=== PATIENT | male | born 2000 | race Asian ===

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

== ENCOUNTER 2018-01-09 12:51 | Inpatient (IN) | payer MEDICAID, OTHER ==
[~2018-01-09] VITALS: Ht 177.8 cm; Wt 54.0 kg
[~2018-01-09 12:51] MED LIST changes: +DIVA-78 PO; +LITH300C3 PO
[2018-01-09] MEDS ORDERED: LORazepam 2 MG/ML VIAL IM ONE (16:30)
[2018-01-09] MEDS ORDERED: DiphenhydrAMINE HCL 50 MG/ML VIAL IM ONE (16:30)
[2018-01-09] MEDS ORDERED: HALOPERIDOL LACTATE 5 MG/ML VIAL IM ONE (16:30)
[2018-01-09 17:13] LABS: BASOPHILS % (AUTO) 0.7 % (0.0-2.0); EOSINOPHILS % (AUTO) 0.2 % (1.0-6.0); HEMATOCRIT 46.6 % (41-53); HEMOGLOBIN 16.1 g/dL (13.5-17.5); LYMPHOCYTES # (AUTO) 2.3 K/uL (1.0-4.8); LYMPHOCYTES % (AUTO) 20.9 % (22.0-44.0); MEAN CORPUSCULAR HEMOGLOBIN 30.5 pg (26.0-34.0); MEAN CORPUSCULAR HGB CONC 34.5 G/dL (31.0-37.0); MEAN CORPUSCULAR VOLUME 88 fL (80-100); MONOCYTES # (AUTO) 1.3 K/uL (0.1-1.0); MONOCYTES % (AUTO) 11.4 % (2.0-9.0); NEUTROPHILS # (AUTO) 7.4 K/uL (1.8-7.7); NEUTROPHILS % (AUTO) 66.8 % (40.0-70.0); PLATELET COUNT (AUTO) 241 K/uL (150-450); RED BLOOD CELL COUNT(AUTO) 5.27 MIL/uL (4.50-5.90); RED CELL DISTRIBUTION WIDTH 13.2 % (11.5-14.5)
[2018-01-09 17:14] LABS: AMPHET/METH SCREEN,URINE NEGATIVE (NEGATIVE); BARBITURATE SCREEN, URINE NEGATIVE (NEGATIVE); BENZODIAZEPINES SCREEN,URINE NEGATIVE (NEGATIVE); CANNABINOID SCREEN,URINE NEGATIVE (NEGATIVE); COCAINE SCREEN,URINE NEGATIVE (NEGATIVE); METHADONE SCREEN, URINE NEGATIVE (NEGATIVE); OPIATE SCREEN,URINE NEGATIVE (NEGATIVE); PHENCYCLIDINE SCREEN,URINE NEGATIVE (NEGATIVE)
[2018-01-09 17:28] LABS: ANION GAP 17 mmol/L (8-16); CARBON DIOXIDE 21 mmol/L (22-29); CHLORIDE 104 mmol/L (98-107); CREATININE 1.12 mg/dL (0.60-1.30); GLOMERULAR FILTR. RATE CALC > 60 mL/min (>60); GLUCOSE,RANDOM 101 mg/dL (70-110); POTASSIUM 3.9 mmol/L (3.5-5.1); SODIUM SERUM 142 mmol/L (136-145); UREA NITROGEN, BLOOD 14 mg/dL (7-18)
[2018-01-09 17:33] LABS: ALANINE AMINOTRANSFERASE 140 U/L (12-78); ALBUMIN 4.8 g/dL (3.4-5.0); ALKALINE PHOSPHATASE 86 U/L (46-116); ASPARTATE AMINOTRANSFERASE 41 U/L (15-37); TOTAL PROTEIN, SERUM 8.9 g/dL (6.4-8.2)
[2018-01-09] MEDS ORDERED: ZOLPIDEM TARTRATE 10 MG TABLET PO PRN (18:00)
[2018-01-09] MEDS ORDERED: LORazepam 2 MG TABLET PO PRN (18:00)
[2018-01-09] MEDS ORDERED: HALOPERIDOL 5 MG TABLET PO PRN (18:00)
[2018-01-09] MEDS: HALOPERIDOL 5 MG TABLET PO SCH (20:40)
[2018-01-10] MEDS: HALOPERIDOL 5 MG TABLET PO SCH (08:44)
[2018-01-10 09:25] LABS: CHOL/HDL RATIO 4.1 (4.2-7.3); FREE T4 (FREE THYROXINE) 0.92 ng/dL (0.76-1.46); THYROID STIMULATING HORMONE 0.8 uIU/mL (0.36-3.74)
[2018-01-10 20:03] VITALS: BP 108/56
[2018-01-10] MEDS ORDERED: DOCUSATE SODIUM 100 MG CAPSULE PO PRN ×2 (21:15)
[2018-01-10] MEDS ORDERED: ALBUTEROL SULFATE HFA 90 MCG/PUFF 8 GM INHALER IH PRN (21:15)
[2018-01-10] MEDS ORDERED: ONDANSETRON HCL 4 MG TABLET PO PRN ×2 (21:15)
[2018-01-10] MEDS ORDERED: MAG HYDROX/AL HYDROX/SIMETH ES 30 ML SUSPENSION UDCUP PO PRN ×2 (21:15)
[2018-01-10] MEDS ORDERED: MAGNESIUM HYDROXIDE SUSPENSION 30 ML UDCUP PO PRN ×2 (21:15)
[2018-01-10] MEDS ORDERED: LOPERAMIDE HCL 2 MG CAPSULE PO PRN ×2 (21:15)
[2018-01-10] MEDS ORDERED: IBUPROFEN 400 MG TABLET PO PRN (21:15)
[2018-01-10] MEDS ORDERED: ACETAMINOPHEN 325 MG TABLET PO PRN ×2 (21:15)
[2018-01-10] MEDS ORDERED: PETROLATUM,WHITE 71 GM JELLY TP PRN ×2 (21:15)
[2018-01-11] MEDS ORDERED: NICOTINE 14 MG/24 HOUR PATCH TD SCH (09:00)
[2018-01-11 09:12] VITALS: BP 102/51
[2018-01-11] MEDS: HALOPERIDOL 5 MG TABLET PO SCH ×2 (10:26→17:38)
[2018-01-11] MEDS: NICOTINE 14 MG/24 HOUR PATCH TD SCH (10:26)
[2018-01-11 21:34] VITALS: BP 106/60
[2018-01-12 10:15] VITALS: BP 102/53
[2018-01-12] MEDS: NICOTINE 14 MG/24 HOUR PATCH TD SCH (11:13)
[2018-01-12] MEDS: HALOPERIDOL 5 MG TABLET PO SCH (16:27)
[2018-01-12 19:18] VITALS: BP 106/67
[2018-01-13 08:05] VITALS: BP 103/69
[2018-01-13] MEDS: HALOPERIDOL 5 MG TABLET PO SCH ×2 (09:33→15:51)
[2018-01-13] MEDS: NICOTINE 14 MG/24 HOUR PATCH TD SCH (09:34)
[2018-01-13 15:51] VITALS: BP 111/77
[2018-01-13] MEDS: IBUPROFEN 400 MG TABLET PO PRN ×2 (15:51→16:21)
[2018-01-14 09:39] VITALS: BP 94/56
[2018-01-14] MEDS: HALOPERIDOL 5 MG TABLET PO SCH ×2 (10:26→16:17)
[2018-01-14] MEDS: NICOTINE 14 MG/24 HOUR PATCH TD SCH (10:27)
[2018-01-14 17:21] VITALS: BP 130/78
[2018-01-15] MEDS: NICOTINE 14 MG/24 HOUR PATCH TD SCH (09:14)
[2018-01-15] MEDS: HALOPERIDOL 5 MG TABLET PO SCH (09:14)
[2018-01-15 10:08] VITALS: BP 97/66
[2018-01-15] MEDS ORDERED: HALO5TAB2 PO (10:56)
== END 2018-01-15 14:35 | disposition home or self-care (01) | DRG 751 ==
LOC: EMS 12:52 → B3A 01-10 15:16 → UNDOADMIN 01-10 15:16 → 3EI 01-10 18:45
PROVIDERS: ADMIT Psychiatry & Neurology Psychiatry; ATTEND Psychiatry & Neurology Psychiatry
DX: F29 Unspecified psychosis not due to a substance or known physiological condition (principal); I95.9 Hypotension, unspecified; R45.851 Suicidal ideations; F20.9 Schizophrenia, unspecified; F15.90 Other stimulant use, unspecified, uncomplicated; F19.20 Other psychoactive substance dependence, uncomplicated; D72.829 Elevated white blood cell count, unspecified; E78.5 Hyperlipidemia, unspecified; F32.9 Major depressive disorder, single episode, unspecified; F41.9 Anxiety disorder, unspecified; R74.0 Nonspecific elevation of levels of transaminase and lactic acid dehydrogenase [LDH]; F17.200 Nicotine dependence, unspecified, uncomplicated; Z63.9 Problem related to primary support group, unspecified; Z91.19 Patient's noncompliance with other medical treatment and regimen; Z79.899 Other long term (current) drug therapy
CPT/HCPCS: 84439; 84443; 99285; G0480

== ENCOUNTER 2018-03-03 10:38 | Emergency (ER) | payer MEDICAID, OTHER ==
[~2018-03-03] VITALS: Ht 180.3 cm; Wt 56.8 kg
[~2018-03-03 10:38] MED LIST changes: -DIVA-78 PO; +HALO5TAB2 PO; -LITH300C3 PO; -SERT50TA12 PO
[2018-03-03 10:40] VITALS: BP 138/74
[2018-03-03] MEDS ORDERED: IBUPROFEN 600 MG TABLET PO ONE (13:15)
[2018-03-03] MEDS ORDERED: ACETAMINOPHEN 325 MG TABLET PO ONE (13:15)
== END 2018-03-03 13:25 | disposition home or self-care (01) ==
LOC: EMS 10:39
DX: J02.0 Streptococcal pharyngitis (principal); F32.9 Major depressive disorder, single episode, unspecified; F20.9 Schizophrenia, unspecified
CPT/HCPCS: 99283

== ENCOUNTER 2018-10-21 15:27 | Emergency (ER) | payer OTHER ==
[~2018-10-21] VITALS: Ht 167.6 cm; Wt 68.0 kg
[~2018-10-21 15:27] MED LIST changes: +CEPH500 PO; -HALO5TAB2 PO; +RISP1 PO
[2018-10-21 16:08] LABS: BASOPHILS % (AUTO) 0.4 % (0.0-2.0); EOSINOPHILS % (AUTO) 0.2 % (1.0-6.0); HEMATOCRIT 43.7 % (41-53); HEMOGLOBIN 14.8 g/dL (13.5-17.5); LYMPHOCYTES # (AUTO) 1.7 K/uL (1.0-4.8); LYMPHOCYTES % (AUTO) 15.2 % (22.0-44.0); MEAN CORPUSCULAR HEMOGLOBIN 30.1 pg (26.0-34.0); MEAN CORPUSCULAR HGB CONC 33.8 G/dL (31.0-37.0); MEAN CORPUSCULAR VOLUME 89 fL (80-100); MONOCYTES # (AUTO) 0.8 K/uL (0.1-1.0); MONOCYTES % (AUTO) 7.5 % (2.0-9.0); NEUTROPHILS # (AUTO) 8.3 K/uL (1.8-7.7); NEUTROPHILS % (AUTO) 76.7 % (40.0-70.0); PLATELET COUNT (AUTO) 295 K/uL (150-450); RED BLOOD CELL COUNT(AUTO) 4.91 MIL/uL (4.50-5.90); RED CELL DISTRIBUTION WIDTH 13.7 % (11.5-14.5)
[2018-10-21 16:20] LABS: ANION GAP 17 mmol/L (8-16); CALCIUM, TOTAL 9.6 mg/dL (8.8-10.5); CARBON DIOXIDE 21 mmol/L (22-29); CHLORIDE 102 mmol/L (98-107); CREATININE 1.06 mg/dL (0.60-1.30); GLOMERULAR FILTR. RATE CALC > 60 mL/min (>60); GLUCOSE,RANDOM 91 mg/dL (70-110); POTASSIUM 3.4 mmol/L (3.5-5.1); SODIUM SERUM 140 mmol/L (136-145); UREA NITROGEN, BLOOD 12 mg/dL (7-18)
[2018-10-21 16:25] LABS: ALANINE AMINOTRANSFERASE 27 U/L (12-78); ALBUMIN 4.3 g/dL (3.4-5.0); ALKALINE PHOSPHATASE 120 U/L (46-116); ASPARTATE AMINOTRANSFERASE 40 U/L (15-37); BILIRUBIN,TOTAL 0.7 mg/dL (0.1-1.0)
[2018-10-21] MEDS ORDERED: LORazepam 2 MG TABLET PO ONE (16:45)
[2018-10-21] MEDS ORDERED: POTASSIUM CHLORIDE 20 MEQ ER TABLET PO ONE (17:00)
[2018-10-21 17:02] LABS: AMPHET/METH SCREEN,URINE NEGATIVE (NEGATIVE); BARBITURATE SCREEN, URINE NEGATIVE (NEGATIVE); BENZODIAZEPINES SCREEN,URINE NEGATIVE (NEGATIVE); CANNABINOID SCREEN,URINE NEGATIVE (NEGATIVE); COCAINE SCREEN,URINE NEGATIVE (NEGATIVE); METHADONE SCREEN, URINE NEGATIVE (NEGATIVE); OPIATE SCREEN,URINE NEGATIVE (NEGATIVE); PHENCYCLIDINE SCREEN,URINE NEGATIVE (NEGATIVE)
[2018-10-21 18:03] VITALS: BP 135/78
== END 2018-10-21 18:25 | disposition home or self-care (01) ==
LOC: EMS 15:28
DX: F20.9 Schizophrenia, unspecified (principal); F15.10 Other stimulant abuse, uncomplicated; F32.9 Major depressive disorder, single episode, unspecified; F17.210 Nicotine dependence, cigarettes, uncomplicated; Z79.899 Other long term (current) drug therapy
CPT/HCPCS: 36415; 80053; 80307; 85025; 99285; G0480

== ENCOUNTER 2018-10-29 14:50 | Emergency (ER) | payer OTHER ==
[~2018-10-29] VITALS: Ht 175.3 cm; Wt 54.5 kg
[~2018-10-29 14:50] MED LIST changes: -CEPH500 PO
[2018-10-29 15:37] VITALS: BP 124/71
[2018-10-29] MEDS ORDERED: ACETAMINOPHEN 500 MG TABLET PO ONE (15:45)
[2018-10-29] MEDS ORDERED: BENZONATATE 100 MG CAPSULE PO ONE (15:45)
== END 2018-10-29 16:05 | disposition home or self-care (01) ==
LOC: EMS 14:50
DX: J04.10 Acute tracheitis without obstruction (principal); J34.89 Other specified disorders of nose and nasal sinuses; F17.210 Nicotine dependence, cigarettes, uncomplicated; F32.9 Major depressive disorder, single episode, unspecified; F20.9 Schizophrenia, unspecified; F15.90 Other stimulant use, unspecified, uncomplicated
CPT/HCPCS: 99406